=== PATIENT | male | born 1970 | race Caucasian/White ===

== ENCOUNTER 2020-05-21 13:15 | Emergency (ER) | payer SELFPAY ==
[~2020-05-21] VITALS: Ht 182.9 cm; Wt 65.8 kg
[2020-05-21] MEDS ORDERED: DEXAMETHASONE 4 MG TAB PO STA (13:32)
[2020-05-21 16:13] VITALS: BP 135/83
== END 2020-05-21 16:20 | disposition home or self-care (01) ==
LOC: ER 13:31
DX: R91.8 Other nonspecific abnormal finding of lung field (principal); M54.2 Cervicalgia
CPT/HCPCS: 72125; 99284